=== PATIENT | male | born 1970 | race Caucasian/White ===

== ENCOUNTER 2016-11-30 10:27 | Emergency (ER) | payer OTHER | END 2016-11-30 12:40 | disposition home or self-care (01) | LOC: ER1 10:27 | DX: S99.921A Unspecified injury of right foot, initial encounter (principal); F17.210 Nicotine dependence, cigarettes, uncomplicated; Z88.2 Allergy status to sulfonamides; X50.1XXA Overexertion from prolonged static or awkward postures, initial encounter; Y93.01 Activity, walking, marching and hiking; Y92.009 Unspecified place in unspecified non-institutional (private) residence as the place of occurrence of the external cause | CPT/HCPCS: 73630; 99283 ==

== ENCOUNTER → 2021-08-19 | Outpatient (CLI) | payer OTHER | LOC: HEART 5 08:48 | DX: R07.9 Chest pain, unspecified (principal); I25.10 Atherosclerotic heart disease of native coronary artery without angina pectoris | CPT/HCPCS: 78452; 93306; A9502; J2785 ==